=== PATIENT | female | born 1985 | race Caucasian/White ===

== ENCOUNTER → 2022-12-23 | Outpatient (CLI) | payer BC ==
[~2022-12-23] MED LIST: ACET1TAB43 PO; FERR-57 PO; IBP600T1 PO; LVT.1T PO; PREN1TAB14 PO; PREN1TAB39 PO; SPIR100T28 PO; TRAM-21 PO
--- NOTE | 2022-12-23 12:10 | Diagnostic Imaging Report ---
TECHNIQUE: Focused ultrasound of a gravid uterus was performed. REASON FOR EXAM: Third trimester bleeding. COMPARISON: None. FINDINGS: A single live intrauterine gestation is visualized in cephalic presentation. heart tones measure 167 bpm. The placenta is posterior and not low-lying. The cervix is closed and measures 4.7 cm in length. The HALIMA is normal measuring 7.1 cm. No abnormalities are identified. No evidence of abruption. IMPRESSION: 1. Single live intrauterine gestation in cephalic presentation with heart tones of 167 bpm. 2. Posterior placenta without evidence of previa or abruption. Recommend follow-up, as indicated. Dictated by: Dictated on workstation # [id number]
== END ==
LOC: RAD 11:23
PROVIDERS: ATTEND Family Medicine
DX: O26.853 Spotting complicating pregnancy, third trimester (principal); Z3A.00 Weeks of gestation of pregnancy not specified
CPT/HCPCS: 76815

== ENCOUNTER 2022-12-28 21:18 | Outpatient (CLI) | payer BC ==
[~2022-12-28] VITALS: Ht 170 cm; Wt 95.6 kg
[2022-12-28 22:05] VITALS: BP 123/75
[2022-12-28 22:58] LABS: BILIRUBIN,URINE NEGATIVE (NEGATIVE); CLARITY,URINE CLEAR; COLOR,URINE YELLOW; GLUCOSE, URINE (UA) NEGATIVE (NEGATIVE); KETONES,URINE 1+ (NEGATIVE); LEUKOCYTE ESTERASE ,URINE NEGATIVE (NEGATIVE); NITRITE,URINE NEGATIVE (NEGATIVE); PROTEIN,URINE NEGATIVE (NEGATIVE)
[2022-12-28 23:07] LABS: BACTERIA,URINE TRACE /HPF
[2022-12-28] MEDS ORDERED: hydrOXYzine (VISTARIL/ATARAX) 25 MG capsule/tablet PO ONE (23:30)
[2022-12-28] MEDS ORDERED: ACETAMINOPHEN 500 MG TAB (TYLENOL) PO ONE (23:30)
--- NOTE | 2022-12-29 08:25 | Physician Query-Final Dx ---
Clinic Account Progress/Dx Physician Query: Please give diagnosis Please include # weeks gestation Date of Service December 28, 2022 at 21:18 ,AugDecember 29, 2022 08:25
== END 2022-12-29 00:09 | disposition home or self-care (01) ==
LOC: WSo 21:18 → LDRP 21:18 → WSo 12-29 00:09
PROVIDERS: ATTEND Family Medicine
DX: O62.9 Abnormality of forces of labor, unspecified (principal); Z3A.00 Weeks of gestation of pregnancy not specified
CPT/HCPCS: 81000; G0463; 99213

== ENCOUNTER 2023-01-20 22:04 | Outpatient (CLI) | payer BC ==
[~2023-01-20] VITALS: Ht 167.7 cm; Wt 97.8 kg
[2023-01-20 22:30] VITALS: BP 117/57
[2023-01-20 22:44] LABS: BILIRUBIN,URINE NEGATIVE (NEGATIVE); CLARITY,URINE CLEAR; COLOR,URINE YELLOW; GLUCOSE, URINE (UA) NEGATIVE (NEGATIVE); KETONES,URINE 1+ (NEGATIVE); LEUKOCYTE ESTERASE ,URINE 2+ (NEGATIVE); NITRITE,URINE NEGATIVE (NEGATIVE); PROTEIN,URINE NEGATIVE (NEGATIVE)
[2023-01-20 22:54] LABS: BACTERIA,URINE LARGE /HPF; RBC,URINE RARE /HPF
== END 2023-01-20 23:57 | disposition home or self-care (01) ==
LOC: WSo 22:04 → LDRP 22:05 → WSo 23:57
PROVIDERS: ATTEND Family Medicine
DX: O62.9 Abnormality of forces of labor, unspecified (principal); Z3A.00 Weeks of gestation of pregnancy not specified
CPT/HCPCS: 81000; 87088

== ENCOUNTER 2023-01-28 16:57 | Outpatient (CLI) | payer BC ==
[~2023-01-28] VITALS: Ht 167.5 cm; Wt 99.8 kg
[2023-01-28 17:23] LABS: BILIRUBIN,URINE NEGATIVE (NEGATIVE); CLARITY,URINE CLEAR; COLOR,URINE YELLOW; GLUCOSE, URINE (UA) NEGATIVE (NEGATIVE); KETONES,URINE NEGATIVE (NEGATIVE); LEUKOCYTE ESTERASE ,URINE NEGATIVE (NEGATIVE); NITRITE,URINE NEGATIVE (NEGATIVE); PROTEIN,URINE NEGATIVE (NEGATIVE)
[2023-01-28 17:33] LABS: BACTERIA,URINE NEGATIVE /HPF
[2023-01-28 17:42] VITALS: BP 116/70
--- NOTE | 2023-01-30 08:32 | Physician Query-Final Dx ---
HECTOR01/30/23 0832: Clinic Account Progress/Dx Physician Query: Please give diagnosis Please include # weeks gestation Date of Service Jan 28, 2023 at 16:57 SHEILA WORLEY MD 01/31/23 1043: Clinic Account Progress/Dx DIAGNOSIS: Diagnosis 39 weeks gestation Leaking fluid, negative amniotic fluid testing HECTOR,AugJan 30, 2023 08:32 SHEILA WORLEY MD Jan 31, 2023 10:43
== END 2023-01-28 18:25 | disposition home or self-care (01) ==
LOC: WSo 16:57 → LDRP 16:58 → WSo 17:07 → INTOOBSV 17:08 → LDRP 17:08 → UNDOADMOB 17:08 → WSo 18:25
PROVIDERS: ATTEND Family Medicine
DX: O42.013 Preterm premature rupture of membranes, onset of labor within 24 hours of rupture, third trimester (principal); Z3A.39 39 weeks gestation of pregnancy
CPT/HCPCS: 81000; 87088; G0463; 99213

== ENCOUNTER 2023-02-01 05:22 | Inpatient (IN) | payer BC ==
[2023-02-01] VITALS (39 sets, daily range): BP systolic 102–164; BP diastolic 59–107
[~2023-02-01] VITALS: Ht 167.7 cm; Wt 99.0 kg
[2023-02-01] MEDS ORDERED: AMPICILLIN FOR IV USE 2,000 MG in NS (IVPB) 50 ML IV SCH (05:26)
[2023-02-01] MEDS ORDERED: D5 LR IV SOLUTION 1,000 ML IV SCH (05:30)
[2023-02-01] MEDS ORDERED: CATHETER FLUSH 10 ML SYR IV SCH ×2 (06:00→22:00)
[2023-02-01 06:19] LABS: BASOPHILS % (AUTO) 0 % (0-10); EOSINOPHILS # (AUTO) 0.1 10^3/uL (0.0-0.3); EOSINOPHILS % (AUTO) 2 % (0-10); HEMATOCRIT 28 % (35-52); HEMOGLOBIN 9.2 g/dL (11.5-16.0); LYMPHOCYTES # (AUTO) 2.5 10^3/uL (1.0-4.0); LYMPHOCYTES % (AUTO) 35 % (12-44); MEAN CORPUSCULAR HEMOGLOBIN 28 pg (25-34); MEAN CORPUSCULAR HGB CONC 33 g/dL (32-36); MEAN CORPUSCULAR VOLUME 83 fL (80-99); MEAN PLATELET VOLUME 10.3 fL (9.0-12.2); MONOCYTES # (AUTO) 0.5 10^3/uL (0.0-1.0); MONOCYTES % (AUTO) 7 % (0-12); NEUTROPHILS % (AUTO) 55 % (42-75); PLATELET COUNT 186 10^3/uL (130-400); WHITE BLOOD COUNT 7.3 10^3/uL (4.3-11.0)
--- NOTE | 2023-02-01 06:56 | History & Physical-OB ---
OB - Chief Complaint & HPI Date/Time Date of Admission: Date of Admission: Feb 01, 2023 at 05:22 Date seen by a Provider: Feb 01, 2023 Time Seen by a Provider: 06:30 Chief Complaint/History OB-Reason for Admission/Chief: Rupture of Membranes Hx : 4 Hx Para: 3 Expected Date of Delivery: Feb 08, 2023 Gestational Age in Weeks: 39 Gestational Age in Days: 0 Admission Nurse Assessment Rev: Yes History of Labs GBS positive Allergies and Home Medications Allergies Coded Allergies: codeine (Unverified Adverse Reaction, Mild, N/V, 07/05/11) Patient Home Medication List Home Medication List Reviewed: Yes Vits W-Ca,Fe,Fa(<1MG) ( Vitamins) 1 Each Tablet, 1 EACH PO DAILY, (Reported) Entered as Reported by: MERCEDES FAULKNER on 03/02/121949 OB - History Hx of Present Care: Yes Ultrasounds: Normal mid trimester US Obstetrical Complications: None Medical Complications: None Obstetrical History Hx Termination: No Hx Multiple Gestation: No Hx Stillbirth: No Hx Complication: No Hx Induced Hypertens: Yes Hx Maternal Gestational Diabet: No Delivery History Hx Dystocia: No Hx Large For Gestational Age I: No Hx Small for Gestational Age I: No Hx Section: No Hx Vaginal Delivery Post C-Sec: No Hx Blood Disorders: No Patient Past Medical History No chronic medical problems Social History/Family History 2nd Hand Smoke Exposure: No OB - Admission Exam Physical Exam HEENT: Moist Membranes Heart: Rhythm Normal Lungs: Clear Abdomen: Gravid Extremities: Normal Cervical Dilatation: 2cm Effacement: 75% Station: -3 Membranes: Ruptured Amniotic Fluid: Clear Heart Rate: 120's Accelerations: Accelerations Present Decelerations: No Decelerations Short Term Variability: Present Correction Variability: Average (6-25) Contractions on Admission: 6-10 Minutes Apart Intensity: Mild Labs Laboratory Tests Test 02/01/23 06:05 Range/Units White Blood Count 7.3 4.3-11.0 10^3/uL Red Blood Count 3.32 L 3.80-5.11 10^6/uL Hemoglobin 9.2 L 11.5-16.0 g/dL Hematocrit 28 L 35-52 % Mean Corpuscular Volume 83 80-99 fL Mean Corpuscular Hemoglobin 28 25-34 pg Mean Corpuscular Hemoglobin Concent 33 32-36 g/dL Red Cell Distribution Width 13.7 10.0-14.5 % Platelet Count 186 130-400 10^3/uL Mean Platelet Volume 10.3 9.0-12.2 fL Immature Granulocyte % (Auto) 1 % Neutrophils (%) (Auto) 55 42-75 % Lymphocytes (%) (Auto) 35 12-44 % Monocytes (%) (Auto) 7 0-12 % Eosinophils (%) (Auto) 2 0-10 % Basophils (%) (Auto) 0 0-10 % Neutrophils # (Auto) 4.0 1.8-7.8 10^3/uL Lymphocytes # (Auto) 2.5 1.0-4.0 10^3/uL Monocytes # (Auto) 0.5 0.0-1.0 10^3/uL Eosinophils # (Auto) 0.1 0.0-0.3 10^3/uL Basophils # (Auto) 0.0 0.0-0.1 10^3/uL Immature Granulocyte # (Auto) 0.1 0.0-0.1 10^3/uL Syphilis Total Antibody Negative Negative OB - Assessment/Plan/Diagnosis Assessment Assessment: group B positive strep, rupture of membranes (At 39 weeks 0 days station) Admission Dx 1. Intrauterine at 39 weeks gestation with rupture of membranes 2. GBS peritoneum positive at 36 weeks Admission Status: Inpatient Order (span 2 midnights) Reason for Inpatient Admission: Labor and delivery Plan Other Plan 1. Admit for labor course -She is on ampicillin protocol due to the GBS positive -She does not desire epidural at this point in her labor -Pitocin as needed DARWIN BLISS MD Feb 01, 2023 06:56
[2023-02-01] MEDS ORDERED: OXYTOCIN PRE-MIX DRIP 500 ML IV SCH ×2 (08:00→16:15)
[2023-02-01] MEDS ORDERED: AMPICILLIN FOR IV USE 1,000 MG in NS (IVPB) 50 ML IV SCH (09:30)
[2023-02-01] MEDS ORDERED: BUTORPHANOL INJ 2 MG/ML (STADOL) VIAL ONE (12:29)
[2023-02-01] MEDS ORDERED: BUTORPHANOL INJ 2 MG/ML (STADOL) VIAL IV ONE (12:30)
[2023-02-01] MEDS ORDERED: MEPIVACAINE (CARBOCAINE) 2% 50 ML VIAL ONE (15:40)
--- NOTE | 2023-02-01 16:03 | OB Labor & Delivery Record ---
L&D History Date of Service Date of Service: Feb 01, 2023 History Expected Date of Delivery: Feb 03, 2023 Gestational Age in Weeks: 39 Hx : 4 Hx Para: 4 Complications Events: Routine care Operative Indications (Cesarea: N/A-Vaginal Delivery Intrapartal Events: None Other Complications GBS positive- treated x 2 doses ampicillin L&D Stage1 Stage One Onset of Labor - Date: Feb 01, 2023 Onset of Labor - Time: 06:30 Monitors and Tracing Monitor Mode: Internal Heart Rate: 115 Monitor Accelerations: Uniform Monitor Decelerations: Variable Station: -1 Leaf Tier Variability: Average (6-10) Short Term Variability: Present Presentation: Vertex Vital Signs VS - Last 72 Hours, by Label 02/01/23 02/01/23 02/01/23 02/01/23 05:35 07:25 07:40 07:55 Temp 36.0 36.8 Pulse 70 79 78 81 Resp 20 20 20 20 B/P (MAP) 114/72 (86) 119/73 (88) 115/62 (79) Pulse Ox 99 98 98 O2 Delivery Room Air Room Air Room Air 02/01/23 02/01/23 02/01/23 02/01/23 08:10 08:25 08:40 08:55 Pulse 77 82 85 78 Resp 20 20 20 20 B/P (MAP) 113/65 (81) 113/76 (88) 117/74 (88) 110/72 (85) 02/01/23 02/01/23 02/01/23 02/01/23 09:10 09:25 09:40 09:55 Pulse 80 74 74 75 Resp 20 20 20 20 B/P (MAP) 110/74 (86) 114/66 (82) 114/66 (82) 102/63 (76) 02/01/23 02/01/23 02/01/23 02/01/23 10:10 10:25 10:40 10:55 Pulse 85 73 75 77 Resp 20 20 20 20 B/P (MAP) 109/70 (83) 115/69 (84) 118/70 (86) 111/70 (84) 02/01/23 02/01/23 02/01/23 02/01/23 11:10 11:25 11:40 11:55 Pulse 72 71 75 83 Resp 20 20 20 20 B/P (MAP) 122/69 (86) 123/74 (90) 116/76 (89) 105/59 (74) 02/01/23 02/01/23 02/01/23 02/01/23 12:10 12:25 12:40 12:55 Temp 37.1 Pulse 83 74 75 87 Resp 20 20 20 20 B/P (MAP) 132/77 (95) 123/71 (88) 122/66 (84) 122/63 (82) 02/01/23 02/01/23 02/01/23 02/01/23 13:10 13:25 13:40 13:55 Pulse 75 81 88 96 Resp 20 20 20 20 B/P (MAP) 128/70 (89) 124/64 (84) 130/65 (86) 121/76 (91) 02/01/23 14:10 Pulse 109 Resp 20 B/P (MAP) 142/87 (105) Signs of Distress by FHT Signs of Distress no Rupture of Membranes Spontaneous Ruture of Membrane: Yes Amniotic Membrane Rupture Time: 0420 Amniotic Membrane Fluid Desc.: Clear Induction/Anesthesia Medications stadol x 1 L&D Stage2 Stage Two Stage II Date: Feb 01, 2023 Monitors and Tracing Monitor Mode: Internal Heart Rate: 115 Monitor Accelerations: Uniform Monitor Decelerations: Variable Leaf Tier Variability: Average (6-10) Short Term Variability: Present Position: Left Occiput Anterior Presentation: Vertex Signs of Distress by FHT Signs of Distress no Cord Descript/Complications Cord Vessel Description: 3 Vessels Delivery Type Infant Delivery Method: Spontaneous Vaginal Anterior Shoulder: Left Episiotomy/Perineal Laceration Laceraction(s)/Extensions: Yes Episiotomy Description: None, 1st degree Sutures Used: Vicryl Condition of Delivery 1 minute Comment: 8 5 minute Comment: 9 Condition of Condition of Infant: Living Exam: No Observed Abnormalities Resuscitation Resuscitation: N/A - Spontaneous Resp L&D Stage3 Stage Three Stage III Date: Feb 01, 2023 Pictocin Pitocin Administration mu/min: 8 Pitocin ml/hr: 8 Placenta Delivery Placenta Delivery: Spontaneous Delivery Summary Summary Estimated blood loss (mL): 200 Condition of Delivery Examined: Cervix Examined Post Hemorrhage: No Intervention Required none DARWIN BLISS MD Feb 01, 2023 16:02
[2023-02-01] MEDS ORDERED: TETANUS,DIPTH,PERTUSS P/F (BOOSTRIX) 0.5 ML VIAL IM ONE (16:15)
[2023-02-01] MEDS ORDERED: NALOXONE 0.4 MG/ML 1 ML (NARCAN) VIAL IV PRN (16:15)
[2023-02-01] MEDS ORDERED: WITCH HAZEL(TUCKS) 40 EA JAR TOP PRN (16:15)
[2023-02-01] MEDS ORDERED: BENZOCAINE/MENTHOL (DERMOPLAST) 56 ML CAN TP PRN (16:15)
[2023-02-01] MEDS ORDERED: MEASLES,MUMPS,RUBELLA 1 EA INJ SQ ONE (16:15)
[2023-02-01] MEDS: ACETAMINOPHEN 500 MG TAB (TYLENOL) PO SCH ×2 (17:33→23:21)
[2023-02-01] MEDS: IBUPROFEN 600 MG (MOTRIN) TAB PO SCH ×2 (17:33→23:20)
[2023-02-01] MEDS: DOCUSATE SODIUM 100 MG (COLACE) CAP PO SCH (21:58)
[2023-02-02 01:55] VITALS: BP 98/70
[2023-02-02 04:05] VITALS: BP 97/62
[2023-02-02 05:40] LABS: BASOPHILS % (AUTO) 0 % (0-10); EOSINOPHILS # (AUTO) 0.1 10^3/uL (0.0-0.3); EOSINOPHILS % (AUTO) 1 % (0-10); HEMATOCRIT 27 % (35-52); HEMOGLOBIN 8.9 g/dL (11.5-16.0); LYMPHOCYTES % (AUTO) 18 % (12-44); MEAN CORPUSCULAR HEMOGLOBIN 27 pg (25-34); MEAN CORPUSCULAR HGB CONC 33 g/dL (32-36); MEAN CORPUSCULAR VOLUME 82 fL (80-99); MEAN PLATELET VOLUME 10.6 fL (9.0-12.2); MONOCYTES # (AUTO) 0.8 10^3/uL (0.0-1.0); MONOCYTES % (AUTO) 7 % (0-12); NEUTROPHILS # (AUTO) 8.4 10^3/uL (1.8-7.8); NEUTROPHILS % (AUTO) 74 % (42-75); PLATELET COUNT 157 10^3/uL (130-400); WHITE BLOOD COUNT 11.4 10^3/uL (4.3-11.0)
[2023-02-02] MEDS: ACETAMINOPHEN 500 MG TAB (TYLENOL) PO SCH ×2 (06:39→13:07)
[2023-02-02] MEDS: IBUPROFEN 600 MG (MOTRIN) TAB PO SCH ×2 (06:39→13:06)
[2023-02-02] MEDS ORDERED: PRENATAL VITAMIN 1 EA TAB PO SCH (07:00)
--- NOTE | 2023-02-02 07:44 | Discharge Summary ---
Diagnosis/Chief Complaint Date of Admission Feb 01, 2023 at 05:22 Date of Discharge February 02, 2023 Discharge Date: Feb 02, 2023 Discharge Time: 18:00 Admission Diagnosis Admission Diagnosis 1. Intrauterine at 39 weeks gestation 2. GBS positivity perineum at 36 weeks 3. Iron deficiency anemia Discharge Diagnosis 1. Intrauterine at 39 weeks gestation 2. GBS positivity perineum at 36 weeks 3. Iron deficiency anemia Reason Hospital Visit 37-year-old 4 now term4 L4 who initially presented to labor and delivery for induction of labor in the morning of February 01, 2023. she had an uneventful care with a EDC of February 08, 2023. Her GBS was positive at 36 weeks gestation Discharge Summary-OBS Procedures 1. Spontaneous vaginal delivery 2. Repair of minor perineal laceration Discharge Physical Examination Allergies: Coded Allergies: codeine (Unverified Adverse Reaction, Mild, N/V, 07/05/11) Vitals & I&Os Vital Signs Date Time Temp Pulse Resp B/P (MAP) Pulse Ox O2 Delivery O2 Flow Rate FiO2 02/02/23 04:05 36.3 78 18 97/62 (74) 96 Room Air General Appearance: Alert, Oriented X3 Respiratory: Clear to Auscultation Cardiovascular: Regular Rate Abdominal: Soft (With uterus firm) Hospital Course Was the Problem List Reviewed?: Yes following admission she underwent placement of scalp electrode. She apparently ruptured her membranes at home at 04 20. She required low-dose Pitocin augmentation to achieve adequate contractions. Ultimately she went on to completion and was allowed to push. She delivered a term viable female during the afternoon of February 01, 2023 following delivery patient underwent routine care orders. She had no complications during the remainder of hospital stay. Her hemoglobin on admission was 9.2 and this decreased to 8.9. She was without any lightheadedness and she had no chest pain or leg pain. Ultimately she was ready for dismissal during the afternoon of February 02, 2023. She will follow-up with myself in 6 weeks. Pending Labs Laboratory Tests 02/02/23 05:23: White Blood Count 11.4, Red Blood Count 3.27, Hemoglobin 8.9, Hematocrit 27, Mean Corpuscular Volume 82, Mean Corpuscular Hemoglobin 27, Mean Corpuscular Hemoglobin Concent 33, Red Cell Distribution Width 13.6, Platelet Count 157, Mean Platelet Volume 10.6, Immature Granulocyte % (Auto) 1, Neutrophils (%) (Auto) 74, Lymphocytes (%) (Auto) 18, Monocytes (%) (Auto) 7, Eosinophils (%) (Auto) 1, Basophils (%) (Auto) 0, Neutrophils # (Auto) 8.4, Lymphocytes # (Auto) 2.0, Monocytes # (Auto) 0.8, Eosinophils # (Auto) 0.1, Basophils # (Auto) 0.0, Immature Granulocyte # (Auto) 0.1 Discharge Instructions to patient/family Please see electronic discharge instructions given to patient. Discharge Medications Reviewed and agree with Discharge Medication list on patient's Discharge Instruction sheet DARWIN BLISS MD Feb 02, 2023 07:44
--- NOTE | 2023-02-02 07:45 | Discharge Inst-Women's Service ---
Discharge Inst-Women's Serv Depart Medication/Instructions New, Converted or Re-Newed RX: Other Instructions May take [id number] ibuprofen 200 mg tablets 2 or 3 every 6 hours as needed for cramps. Also obtain iron sulfate 325 mg 1 tablet daily with meals. Take iron for the next 1 month. Problems Reviewed?: Yes Consults/Follow Up Additional Follow Up: Yes (With Dr. Bliss in 6 weeks) Activity Activity: Activity as Tolerated Driving Instructions: No Driving for 1 Week Nothing Inside Vagina: No Colony (For 6 weeks) Diet Discharge Diet: Regular Diet Return to The Hospital For: As below Symptoms to Report to : Bleeding Excessive, Fever Over 101 Degrees F, Vaginal Discharge Foul For Any Problems or Questions: Contact Your Physician DARWIN BLISS MD Feb 02, 2023 07:45
[2023-02-02] MEDS: DOCUSATE SODIUM 100 MG (COLACE) CAP PO SCH (09:57)
[2023-02-02 09:58] VITALS: BP 117/59
[2023-02-02 13:10] VITALS: BP 133/58
== END 2023-02-02 17:55 | disposition home or self-care (01) | DRG 807 ==
LOC: LDRP 05:22
PROVIDERS: ADMIT Family Medicine; ATTEND Family Medicine
PROC: 10E0XZZ Delivery of Products of Conception, External Approach (ICD-10-PCS; principal; 2023-02-01)
PROC: 0HQ9XZZ Repair Perineum Skin, External Approach (ICD-10-PCS; 2023-02-01)
DX: O99.824 Streptococcus B carrier state complicating childbirth (principal); Z37.0 Single live birth; O70.0 First degree perineal laceration during delivery; O99.02 Anemia complicating childbirth; D50.9 Iron deficiency anemia, unspecified; Z88.5 Allergy status to narcotic agent; Z3A.39 39 weeks gestation of pregnancy
CPT/HCPCS: 36415; 85025; 86780; 86850; 86900; 86901